=== PATIENT | male | born 1995 | race Caucasian/White ===

== ENCOUNTER 2022-01-13 13:05 | Emergency (ER) | payer MEDICAID, OTHER ==
[~2022-01-13] VITALS: Ht 185.4 cm; Wt 74.8 kg
--- NOTE | 2022-01-13 13:20 | NUR ---
IV LINE ESTABLISHED ON LAC #20, BLOOD DRAWN AND SENT TO LAB
--- NOTE | 2022-01-13 13:25 | NUR ---
TRUST CLERK AT BEDSIDE FOR CXR
--- NOTE | 2022-01-13 13:28 | NUR ---
TECH AT BEDSIDE FOR EKG
[2022-01-13] MEDS ORDERED: LEVETIRACETAM (500MG) 500 MG in IV NS 0.9% 100 ML IV ONE (13:30)
[2022-01-13 13:32] LABS: BASOPHILS % (AUTO) 0.8 % (0.0-2.0); EOSINOPHILS % (AUTO) 2.2 % (0.0-6.0); HEMATOCRIT 48 % (39-51); HEMOGLOBIN 16.4 g/dL (13.5-17.5); LYMPHOCYTES % (AUTO) 36.5 % (20.0-44.0); MEAN CORPUSCULAR HGB CONC 34 g/dl (31.0-36.0); MEAN CORPUSCULAR VOLUME 86 fL (80-96); MONOCYTES # (AUTO) 0.4 K/uL (0.1-1.30); MONOCYTES % (AUTO) 7.4 % (2.0-12.0); NEUTROPHILS # (AUTO) 2.9 K/uL (1.8-8.9); NEUTROPHILS % (AUTO) 53.1 % (43.0-81.0); PLATELET COUNT (AUTO) 227 K/uL (150-450); RED BLOOD CELL COUNT(AUTO) 5.62 MIL/uL (4.5-6.0); WHITE BLOOD COUNT (AUTO) 5.5 K/uL (4.3-11.0)
[2022-01-13 13:46] LABS: ALANINE AMINOTRANSFERASE 31 U/L (12-78); ALBUMIN 4.2 g/dL (3.4-5.0); ALCOHOL, BLOOD < 3 mg/dL (0-0); ALKALINE PHOSPHATASE 63 U/L (46-116); ASPARTATE AMINOTRANSFERASE 12 U/L (15-37); BILIRUBIN,DIRECT 0.1 mg/dL (0.0-0.2); BILIRUBIN,TOTAL 0.5 mg/dL (0.2-1.0); CARBON DIOXIDE 22 mmol/L (21-32); CHLORIDE 105 mmol/L (98-107); CREATININE 1.1 mg/dL (0.6-1.3); GLUCOSE 90 mg/dL (74-106); POTASSIUM 3.7 mmol/L (3.5-5.1); SODIUM SERUM 141 mmol/L (136-145); TOTAL PROTEIN, SERUM 7.8 g/dL (6.4-8.2); UREA NITROGEN, BLOOD 13 mg/dL (7-18)
--- NOTE | 2022-01-13 13:52 | NUR ---
PT'S MOTHER AT BEDSIDE. RAD TRANSPORTER ABT TO TAKE PT FOR CT SCAN BUT PT'S MOTHER DECLINED, STATING THAT "UNLESS IT'S MEDICALLY NECESSARY, HE DOES NOT NEED A CT SCAN BECAUSE HE DID NOT HIT HIS HEAD". DR. DE LA ROSA MADE AWARE.
[2022-01-13] MEDS ORDERED: DIVA-78 PO (14:19)
--- NOTE | 2022-01-13 14:25 | NUR ---
DR DE LA ROSA SPEAKING W/ PT'S MOTHER.
--- NOTE | 2022-01-13 14:39 | NUR ---
IV removed. Catheter intact and site benign. Pressure and 4x4 applied to site. No bleeding noted.
--- NOTE | 2022-01-13 14:44 | NUR ---
Patient discharged to home in stable condition, accompanied by pt's mother. Written and verbal after care instructions given. Mother verbalizes understanding of instruction.
[2022-01-13 14:45] VITALS: BP 112/65
== END 2022-01-13 14:47 | disposition home or self-care (01) ==
LOC: ER 13:11
DX: G40.909 Epilepsy, unspecified, not intractable, without status epilepticus (principal); Z79.899 Other long term (current) drug therapy
CPT/HCPCS: 99291; 96365; 93005; 71045; 85025; 80048; 80076; 36415; 85730; 80320; J7030; J1953; G0480